=== PATIENT | male | born 1990 | race Caucasian/White ===

== ENCOUNTER 2016-09-10 15:45 | Emergency (ER) | payer BC ==
[2016-09-10] MEDS ORDERED: LACTATED RINGERS 1,000 ML IV ONE ×2 (15:47→17:42)
[2016-09-10] MEDS ORDERED: ONDANSETRON HCL/PF 4 MG/ 2ML VIAL IVP ONE ×2 (15:48→17:42)
[2016-09-10 16:28] LABS: MEAN CORPUSCULAR HEMOGLOBIN 26.6 pg (28.0-34.0); MEAN CORPUSCULAR VOLUME 84.4 fl (80.0-100.0)
[2016-09-10 16:38] LABS: eGFR (African) > 60; eGFR (Non-African) > 60
[2016-09-10 16:50] LABS: SEGMENTED NEUTROPHILS % 92 % (39-79)
[2016-09-10 16:51] LABS: MONOCYTES % 1 % (0-11)
[2016-09-10] MEDS ORDERED: CIPROFLOXACIN HCL 500 MG TABLET PO ONE (17:06)
[2016-09-10] MEDS ORDERED: PROMETHAZINE HCL 25 MG in 0.9 % SODIUM CHLORIDE 50 ML IV ONE (17:40)
[2016-09-10] MEDS ORDERED: 0.9 % SODIUM CHLORIDE 1,000 ML IV ONE (17:40)
[2016-09-10] MEDS ORDERED: metroNIDAZOLE 500 MG TABLET PO ONE (18:37)
--- NOTE | 2016-09-10 18:46 | ED Physician Documentation ---
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 Pt noted no blood with bm's or emesis. Pt has been lightheaded. Pt does not recall eating anything that did not taste right.) - ROS CONST: weakness EYES/ENT: none CVS/RESP: none GI/: vomiting, nausea, diarrhea MS/SKIN/LYMPH: none - PAST HX Past History: none Other History: none Surgeries/Procedures: none Allergies/Adverse Reactions: Allergies Allergy/AdvReac Type Severity Reaction Status Date / Time No Known Allergies Allergy Verified 09/10/16 16:19 Home Medications: Ambulatory Orders Medication Instructions Recorded NK [NK] 09/10/16 - SOCIAL HX Smoking History: chew - FAMILY HX Family History: No - VITAL SIGNS Vital Signs: Vital Signs Temp Pulse Resp BP Pulse Ox 98.2 F 116 H 20 123/80 98 09/10/16 15:45 09/10/16 15:45 09/10/16 15:45 09/10/16 15:45 09/10/16 15:45 - REVIEWED ASSESSMENTS Nursing Assessment Reviewed: Yes Vitals Reviewed: Yes Progress - Progress Progress: Zofran 4 mg IV LR 1 L IVF Ciprofloxacin 500 mg po Metronidazole 500 mg po LR 1 L IVF Zofran 4 mg IV Rx Ciprofloxacin 500 mg po q 12 h x 7 days Rx Metronidazole 500 mg po q 8 h x 7 days Rx Zofran 4 mg ODT po q 8 h prn. ED Results Lab/Radiology - Lab Results Lab Results: Lab Results 09/10/16 09/10/16 16:20 16:20 WBC 15.00 K/ul H K/ul (4.00-12.00) RBC 5.99 M/ul H M/ul (3.90-5.20) Hgb 15.9 g/dL g/dL (12.0-18.0) Hct 50.6 % % (37.0-53.0) MCV 84.4 fl fl (80.0-100.0) MCH 26.6 pg L pg (28.0-34.0) MCHC 31.5 g/dL g/dL (30.0-36.0) RDW 15.1 % H % (11.3-14.3) Plt Count 277 K/mm3 K/mm3 (130-400) Seg Neutrophils % 92 % H % (39-79) Band Neutrophils % 4 % % (0-12) Lymphocytes % 3 % L % (16-50) Monocytes % 1 % % (0-11) Plt Morphology Comment Normal (NORMAL) RBC Morph Comment Normal (NORMAL) Sodium 139 mmol/L mmol/L (136-145) Potassium 4.4 mmol/L mmol/L (3.5-5.0) Chloride 106 mmol/L mmol/L (98-110) Carbon Dioxide 30 mmol/L mmol/L (20-32) BUN 14 mg/dL mg/dL (10-26) Creatinine 1.0 mg/dL mg/dL (0.4-1.5) Estimated Creat Clear 248 Est GFR ( Amer) > 60 (60 - ) Est GFR (Non-Af Amer) > 60 (60 - ) Glucose 117 mg/dL H mg/dL (70-99) Calcium 9.3 mg/dL mg/dL (8.5-10.5) Total Bilirubin 0.6 mg/dL mg/dL (0.2-1.2) AST 32 U/L U/L (0-41) ALT 38 U/L U/L (0-45) Alkaline Phosphatase 90 U/L U/L (46-116) Total Protein 7.6 g/dL g/dL (6.0-8.5) Albumin 4.9 g/dL g/dL (3.0-5.5) - Orders Orders: ED Orders Category Date Time Status Place Saline Lock/IV NOW Care 09/10/16 15:46 Active CBC/PLATELET/DIFF Routine Lab 09/10/16 16:20 Completed CMP Routine Lab 09/10/16 16:20 Completed Ciprofloxacin HCl [Cipro] Med 09/10/16 17:06 Discontinued 500 mg PO NOW ONE Lactated Ringers [Ringers, Lactated] 1,000 ml Med 09/10/16 15:47 Discontinued IV Q1H Ondansetron HCl/Pf [Zofran 4 mg/2 ml] Med 09/10/16 15:48 Discontinued 4 mg IVP NOW ONE General Adult Physical Exam - PHYSICAL EXAM GENERAL APPEARANCE: moderate distress EENT: pharynx normal NECK: normal inspection, supple RESPIRATORY: no resp distress, chest non-tender, breath sounds normal CVS: reg rate & rhythm, heart sounds normal ABDOMEN: soft, normal bowel sounds, tenderness (mild diffuse) SKIN: warm/dry, normal color EXTREMITIES: non-tender, normal range of motion, no evidence of injury NEURO: oriented X3, motor nml, sensation nml Discharge Clincal Impression: Gastroenteritis Referrals: Primary Doctor,No [Primary Care Provider] - Home Medications: Ambulatory Orders NK [NK] 09/10/16 Condition: Good Disposition: 01 HOME, SELF-CARE Decision to Admit: NO Decision Time: 18:40
[2016-09-10 19:31] VITALS: BP 120/72
== END 2016-09-10 19:20 | disposition home or self-care (01) ==
LOC: ED 15:45 → EDBD 15:45 → ED 19:20
DX: K52.9 Noninfective gastroenteritis and colitis, unspecified (principal)
CPT/HCPCS: 80053; 85025; J2405; J7120; 96361; 96374; 99283